=== PATIENT | female | born 1975 | race Caucasian/White ===

== ENCOUNTER 2016-10-13 06:21 | Day surgery (SDC) | payer OTHER ==
[~2016-10-13] VITALS: Ht 160 cm; Wt 61.6 kg
[~2016-10-13 06:21] MED LIST: AMITRIPTYLINE H10 MG PO; ASPIRIN325 MG PO; ASPIRIN81 M2 PO; CLONAZEPAM0.5 MG PO; IBUPROFEN800 MG PO; LASIX20 MG PO; METOPROLOL SUCC25 MG PO; NORCO 5/3251 TABLET PO; PERCOCET 5/31 TABLET PO; VITAMIN D5000 UNI1 PO; ZOFRAN4 MG PO
[2016-10-13 07:06] VITALS: BP 121/66
[2016-10-13 08:03] LABS: CHLORIDE 105 mEq/L (99-109); POTASSIUM 3.9 mEq/L (3.7-5.4); SODIUM 139 mEq/L (136-147)
[2016-10-13 08:04] LABS: GLUCOSE 84 mg/dL (70-99)
[2016-10-13 08:06] LABS: ANION GAP 7 MEQ/L (2-14)
[2016-10-13 08:08] LABS: GFR ESTIMATE (CALCULATED) > 59 mL/min/
[2016-10-13 08:09] LABS: UREA NITROGEN (BUN) 10 mg/dL (9-23)
[2016-10-13] MEDS ORDERED: IBUPROFEN800 MG PO (09:52)
[2016-10-13] MEDS ORDERED: LORCET 5-325 M1 EACH PO (10:43)
[2016-10-13 11:33] VITALS: BP 115/63
[2016-10-13 12:10] VITALS: BP 106/56
[2016-10-13 14:25] VITALS: BP 116/65
[2016-10-13 17:15] VITALS: BP 111/59
== END 2016-10-13 17:40 | disposition home or self-care (01) ==
LOC: SDC 06:21
PROVIDERS: Obstetrics & Gynecology
DX: N80.0 Endometriosis of uterus (principal); N72 Inflammatory disease of cervix uteri; N92.0 Excessive and frequent menstruation with regular cycle; I10 Essential (primary) hypertension; I34.1 Nonrheumatic mitral (valve) prolapse; Z83.3 Family history of diabetes mellitus
CPT/HCPCS: 80048; 88307; J0131; J0330; J0690; J1100; J1170; J1885; J2250; J2405; J2710; J2765; J3010

== ENCOUNTER 2016-11-12 17:10 | Emergency (ER) | payer OTHER ==
[~2016-11-12] VITALS: Ht 160 cm; Wt 64.4 kg
[~2016-11-12 17:10] MED LIST changes: +LORCET 5-325 M1 EACH PO
[2016-11-12 19:44] LABS: BASOPHIL COUNT 0.1 K/uL (0-0.1); EOSINOPHIL (%) 4.7 % (0-5); EOSINOPHIL COUNT 0.4 K/uL (0-0.3); HEMATOCRIT 39.1 % (36.0-46.0); IMMATURE GRANULOCYTE (%) 0.4 % (0.0-0.7); INSTRUMENT ABS NEUTROPHIL CT 4.6 K/uL; LYMPHOCYTE COUNT 2.4 K/uL (1.0-2.8); MCH 30.8 PG (29.0-34.0); MCHC 33.8 G/DL (30.0-36.0); MCV 91.4 FL (83-99); MEAN PLAT.VOLUME 10.4 uM^3 (9.5-12.4); MONOCYTE (%) 6.8 % (3-12); MONOCYTE COUNT 0.6 K/uL (0-0.8); NEUTROPHIL (%) 57.1 % (45-76); NEUTROPHIL COUNT 4.6 K/uL (1.8-6.4); PLATELET COUNT 407 K/uL (156-360); RBC DIS.WIDTH-CV 12.6 % (11.8-14.6); RBC DIS.WIDTH-SD 41.9 % (39-53); RED BLOOD COUNT 4.28 M/uL (3.80-5.20); WHITE BLOOD COUNT 8.1 K/uL (4.1-10.2)
[2016-11-12 19:56] LABS: CHLORIDE 107 mEq/L (99-109); POTASSIUM 3.8 mEq/L (3.7-5.4); SODIUM 140 mEq/L (136-147)
[2016-11-12 19:58] LABS: GLUCOSE 98 mg/dL (70-99)
[2016-11-12 19:59] LABS: ANION GAP 9 MEQ/L (2-14)
[2016-11-12 20:00] LABS: TOTAL BILIRUBIN 0.4 mg/dL (0.0-1.0)
[2016-11-12 20:02] LABS: ALKALINE PHOSPHATASE 99 IU/L (3-129); GFR ESTIMATE (CALCULATED) > 59 mL/min/
[2016-11-12 20:03] LABS: UREA NITROGEN (BUN) 12 mg/dL (9-23)
[2016-11-12 21:25] LABS: ADD MIUA? YES; BILIRUBIN NEGATIVE; BLOOD NEGATIVE; COLOR COLORLESS ((YELLOW)); GLUCOSE (STRIP) NEGATIVE; KETONES NEGATIVE; LEUKOCYTES TRACE; NITRITE NEGATIVE; PROTEIN (STRIP) NEGATIVE; SPECIFIC GRAVITY 1.025 (1.000-1.030); UROBILINOGEN 0.2 MG/DL (0.2-1.0)
[2016-11-12 21:30] LABS: BACTERIA RARE /HPF; EPITHELIAL CELLS RARE /HPF; MUCUS NONE SEEN /LPF; RED BLOOD CELLS 0-5 /HPF (0-5); UCUL ADDED? YES; WHITE BLOOD CELLS 20-30 /HPF (0-5)
[2016-11-12] MEDS ORDERED: NORCO 5/3251 TABLET PO (22:19)
[2016-11-12 23:00] VITALS: BP 119/68
== END 2016-11-12 23:11 | disposition home or self-care (01) ==
LOC: EME 17:10
PROVIDERS: Physician Assistant
DX: L03.311 Cellulitis of abdominal wall (principal); Z98.890 Other specified postprocedural states; Z90.710 Acquired absence of both cervix and uterus; Z79.82 Long term (current) use of aspirin
CPT/HCPCS: 74177; 80053; 81003; 83605; 85025; 87040; 87086; 99281; 99285; J3010; J3370; J7030